=== PATIENT | male | born 1955 | race African-American/Black ===

== ENCOUNTER 2016-03-23 11:47 | Inpatient (IN) | payer OTHER ==
[~2016-03-23] VITALS: Ht 193 cm; Wt 114.0 kg
[~2016-03-23 11:47] MED LIST: A&D OINTMENT60 GM PO; AFRIN,GENASAL D15 ML BOTH NARES; ASPIR 8181 M1 PO; ATIVAN0.5 MG PO; ATIVAN2 MG/1 ML IM; BACLOFEN20 MG PO; BENADRYL25 MG PO; CETIRIZINE HCL10 M2 PO; CHLORPHENIRAMINE4 MG PO; CLONIDINE HCL0.2 MG PO; COLACE100 MG PO; COUMADIN5 MG PO; COUMADIN7.5 MG PO; DETROL2 MG PO; ENULOSE10 GM/15 M PO; FLEXERIL10 MG PO; FLOMAX0.4 MG PO; GLUCOPHAGE500 MG PO; HUMULIN R100 UNITS/ SC; HYDROCHLOROTHIA50 MG PO; HYDROCODON-ACE1 EAC8 PO; LACTULOSE10 GM/151 PO; LISINOPRIL20 MG PO; LISINOPRIL30 MG PO; LOPRESSOR25 MG PO; MAALOX ADVANCE355 ML PO; NASACORT10.8 ML BOTH NARES; NASONEX17 GM BOTH NARES; NEURONTIN300 MG PO; NYSTATIN100000 UN1 PO; OXAYDO5 MG PO; PRILOSEC20 MG PO; PROZAC20 MG PO; TIGER BALM MUSC57 GM TP; TINACTIN15 GM TP; TRIAMCINOLONE A15 GM TP; TUMS500 MG PO; TYLENOL EXTRA500 MG PO; TYLENOL WITH C1 EACH PO; ZANTAC150 MG PO; ZANTAC75 M1 PO; ZYLOPRIM100 MG PO
[2016-03-23 13:22] LABS: HEMATOCRIT 30.5 % (38.0-50.0); MCH 21.7 PG (29.0-34.0); MCHC 32.1 G/DL (30.0-36.0); MCV 67.5 FL (86-99); MEAN PLAT.VOLUME 10.2 uM^3 (9.0-12.4); PLATELET COUNT 270 K/uL (156-360); RBC DIS.WIDTH-CV 18.2 % (11.8-14.6); RED BLOOD COUNT 4.52 M/uL (4.00-5.50); WHITE BLOOD COUNT 14.1 K/uL (4.1-10.2)
[2016-03-23 13:30] LABS: CHLORIDE 105 mEq/L (99-109); POTASSIUM 4.7 mEq/L (3.7-5.4); SODIUM 139 mEq/L (136-147)
[2016-03-23 13:32] LABS: GLUCOSE 128 mg/dL (70-99)
[2016-03-23 13:34] LABS: INTER. NORMALIZED RATIO 1.7; PROTHROMBIN TIME 17.9 (9.2-11.2); PTT 31.5 (25-32)
[2016-03-23 13:34] LABS: ANION GAP 12 MEQ/L (2-14)
[2016-03-23 13:36] LABS: GFR ESTIMATE (CALCULATED) > 59 mL/min/
[2016-03-23 13:37] LABS: UREA NITROGEN (BUN) 26 mg/dL (9-23)
[2016-03-23] MEDS ORDERED: PROZAC20 MG PO (14:12)
[2016-03-23] MEDS ORDERED: GENERLAC10 GM/15 M PO (14:14)
[2016-03-23] MEDS ORDERED: TRIAMCINOLONE A15 G1 TP (14:16)
[2016-03-23] MEDS ORDERED: A&D OINTMENT60 GM PO (14:20)
[2016-03-23] MEDS ORDERED: E-CREAM57 GM TP (14:22)
[2016-03-23] MEDS ORDERED: POTASSIUM GLUCO99 M1 PO (14:26)
[2016-03-23] MEDS ORDERED: COUMADIN4 MG PO (14:29)
[2016-03-23] MEDS ORDERED: PROSCAR5 MG PO (14:29)
[2016-03-23] MEDS ORDERED: TAMSULOSIN HCL0.4 MG PO (14:31)
[2016-03-23] MEDS ORDERED: ZYRTEC10 M2 PO (14:32)
[2016-03-23] MEDS ORDERED: CHLORASEPTIC T1 EACH PO (14:34)
[2016-03-23] MEDS ORDERED: AMITRIPTYLINE H75 MG PO (14:35)
[2016-03-23] MEDS ORDERED: POTASSIUM CHLO10 ME3 PO (14:36)
[2016-03-23] MEDS ORDERED: NORVASC10 MG PO (14:37)
[2016-03-23 18:20] VITALS: BP 160/54
[2016-03-23 18:43] VITALS: BP 160/54
[2016-03-23 22:02] VITALS: BP 156/73
[2016-03-23 22:54] LABS: POINT-OF-CARE METER ID UU14149397
[2016-03-23 23:33] VITALS: BP 179/82
[2016-03-24 04:24] VITALS: BP 166/86
[2016-03-24 07:55] LABS: POINT-OF-CARE METER ID UU13113717
[2016-03-24 08:00] VITALS: BP 159/89
[2016-03-24 08:45] LABS: POINT-OF-CARE METER ID UU13113717
[2016-03-24 08:50] LABS: INTER. NORMALIZED RATIO 1.7; PROTHROMBIN TIME 17.5 (9.2-11.2)
[2016-03-24 11:41] LABS: POINT-OF-CARE METER ID UU13113717
[2016-03-24 12:06] VITALS: BP 168/79
[2016-03-24 16:55] VITALS: BP 143/81
[2016-03-24 19:31] VITALS: BP 167/84
[2016-03-24 21:44] LABS: POINT-OF-CARE METER ID UU14149397
[2016-03-25] VITALS: BP 146/79
[2016-03-25 06:28] LABS: INTER. NORMALIZED RATIO 1.3
[2016-03-25 07:20] LABS: POINT-OF-CARE METER ID UU14149397
[2016-03-25 08:43] VITALS: BP 141/83
[2016-03-25 08:53] VITALS: BP 159/85
[2016-03-25 11:30] VITALS: BP 133/75
[2016-03-25 12:13] LABS: POINT-OF-CARE METER ID UU13113717
[2016-03-25 16:02] LABS: POINT-OF-CARE USER ID 515036437
[2016-03-25 18:42] VITALS: BP 156/79
[2016-03-25 19:19] LABS: INTER. NORMALIZED RATIO 1.2
[2016-03-25 21:37] LABS: POINT-OF-CARE METER ID UU14149397
[2016-03-25 23:38] VITALS: BP 137/64
[2016-03-26 06:28] LABS: HEMATOCRIT 25.5 % (38.0-50.0); MCV 68.2 FL (86-99)
[2016-03-26 06:30] LABS: INTER. NORMALIZED RATIO 1.2; PROTHROMBIN TIME 11.9 (9.2-11.2)
[2016-03-26 06:34] LABS: POINT-OF-CARE METER ID UU13113717
[2016-03-26 06:49] LABS: ANION GAP 8 MEQ/L (2-14); CHLORIDE 104 MEQ/L (99-109); GFR ESTIMATE (CALCULATED) > 59 mL/min/; GLUCOSE 133 mg/dL (70-99); POTASSIUM 3.9 MEQ/L (3.7-5.4); SAMPLE HEMOLYSIS CHECK 0; SAMPLE ICTERIC CHECK 0; SAMPLE LIPEMIA CHECK 0; SODIUM 140 MEQ/L (136-147); UREA NITROGEN (BUN) 17 mg/dL (9-23)
[2016-03-26 08:11] VITALS: BP 138/68
[2016-03-26 16:15] LABS: INTER. NORMALIZED RATIO 1.2; PROTHROMBIN TIME 11.8 (9.2-11.2)
[2016-03-26 17:02] VITALS: BP 132/79
[2016-03-26 17:03] LABS: POINT-OF-CARE METER ID UU13113717
[2016-03-26 21:38] VITALS: BP 169/81
[2016-03-26 22:13] VITALS: BP 174/86
[2016-03-26 22:39] VITALS: BP 168/85
[2016-03-26 23:56] VITALS: BP 165/81
[2016-03-27 02:23] VITALS: BP 157/76
[2016-03-27 03:03] VITALS: BP 135/73
[2016-03-27 05:51] LABS: HEMATOCRIT 27.9 % (38.0-50.0)
[2016-03-27 06:24] LABS: INTER. NORMALIZED RATIO 1.2; PROTHROMBIN TIME 11.9 (9.2-11.2)
[2016-03-27 07:34] VITALS: BP 146/75
[2016-03-27 09:00] LABS: ANION GAP 9 MEQ/L (2-14); CHLORIDE 105 MEQ/L (99-109); SAMPLE HEMOLYSIS CHECK 0; SAMPLE ICTERIC CHECK 0; SAMPLE LIPEMIA CHECK 0; SODIUM 142 MEQ/L (136-147); TOTAL BILIRUBIN 0.6 MG/DL (0.0-1.0)
[2016-03-27 09:06] LABS: ALKALINE PHOSPHATASE 69 IU/L (3-129); GFR ESTIMATE (CALCULATED) > 59 mL/min/; GLUCOSE 120 mg/dL (70-99); HEMATOCRIT 28.9 % (38.0-50.0); MCH 22.3 PG (29.0-34.0); MCHC 31.5 G/DL (30.0-36.0); MCV 70.8 FL (86-99); RBC DIS.WIDTH-CV 19.9 % (11.8-14.6); RBC DIS.WIDTH-SD 50.5 % (39-53); RED BLOOD COUNT 4.08 M/uL (4.00-5.50); UREA NITROGEN (BUN) 19 mg/dL (9-23)
[2016-03-27 09:09] LABS: PLATELET COUNT UNABLE TO REPORT K/uL (156-360)
[2016-03-27 11:55] LABS: POINT-OF-CARE METER ID UU14149397
[2016-03-27 14:25] LABS: ADD MIUA? NO; BILIRUBIN NEGATIVE; BLOOD NEGATIVE; COLOR YELLOW ((YELLOW)); GLUCOSE (STRIP) NEGATIVE; KETONES NEGATIVE; LEUKOCYTES NEGATIVE; NITRITE NEGATIVE; PROTEIN (STRIP) TRACE; SPECIFIC GRAVITY 1.014 (1.000-1.030)
[2016-03-27 14:48] LABS: UCUL ADDED? NO
[2016-03-27 16:17] LABS: INTER. NORMALIZED RATIO 1.2; PROTHROMBIN TIME 11.9 (9.2-11.2)
[2016-03-27 16:51] VITALS: BP 175/84
[2016-03-27 21:57] LABS: POINT-OF-CARE METER ID UU14149397
[2016-03-27 23:58] VITALS: BP 134/67
[2016-03-28 05:32] LABS: ANION GAP 9 MEQ/L (2-14); CHLORIDE 104 MEQ/L (99-109); GFR ESTIMATE (CALCULATED) > 59 mL/min/; GLUCOSE 123 mg/dL (70-99); POTASSIUM 4.1 MEQ/L (3.7-5.4); SAMPLE HEMOLYSIS CHECK 0; SAMPLE ICTERIC CHECK 0; SAMPLE LIPEMIA CHECK 0; SODIUM 139 MEQ/L (136-147); UREA NITROGEN (BUN) 22 mg/dL (9-23)
[2016-03-28 06:25] LABS: INTER. NORMALIZED RATIO 1.2
[2016-03-28 07:52] VITALS: BP 159/85
[2016-03-28 12:00] LABS: NRBC (%) 0.2 /100 WBC (0-0)
[2016-03-28 12:02] LABS: EOSINOPHIL (%) 1.5 % (0-5); EOSINOPHIL COUNT 0.2 K/uL (0-0.3); IMMATURE GRANULOCYTE (%) 0.5 % (0.0-0.7); IMMATURE GRANULOCYTE COUNT 0.1 K/uL; LYMPHOCYTE COUNT 1.1 K/uL (1.0-2.8); MONOCYTE (%) 10.7 % (3-12); MONOCYTE COUNT 1.5 K/uL (0-0.8); NEUTROPHIL (%) 79.4 % (45-76); NEUTROPHIL COUNT 11.5 K/uL (1.8-6.4)
[2016-03-28 12:58] LABS: HEMATOCRIT 27.3 % (38.0-50.0); MCH 23.2 PG (29.0-34.0); MCHC 32.2 G/DL (30.0-36.0); MEAN PLAT.VOLUME 11.4 uM^3 (9.0-12.4); PLATELET COUNT 255 K/uL (156-360); RBC DIS.WIDTH-CV 20.8 % (11.8-14.6); RED BLOOD COUNT 3.79 M/uL (4.00-5.50); WHITE BLOOD COUNT 14.5 K/uL (4.1-10.2)
[2016-03-28 12:59] LABS: PLAT.SUFFICIENCY ADEQUATE; USER ID STC
[2016-03-28 16:00] VITALS: BP 147/86
[2016-03-28 16:05] LABS: INTER. NORMALIZED RATIO 1.2; PROTHROMBIN TIME 12.5 (9.2-11.2)
[2016-03-28 22:22] LABS: POINT-OF-CARE METER ID UU14149397
[2016-03-28 23:02] VITALS: BP 139/75
[2016-03-29 06:02] LABS: MCH 22.6 PG (29.0-34.0); MCHC 31.4 G/DL (30.0-36.0); MCV 71.8 FL (86-99); MEAN PLAT.VOLUME 10.2 uM^3 (9.0-12.4); PLATELET COUNT 284 K/uL (156-360); RBC DIS.WIDTH-CV 21.2 % (11.8-14.6); RBC DIS.WIDTH-SD 54.4 % (39-53); WHITE BLOOD COUNT 11.2 K/uL (4.1-10.2)
[2016-03-29 06:15] LABS: INTER. NORMALIZED RATIO 1.3; PROTHROMBIN TIME 13.3 (9.2-11.2)
[2016-03-29 06:20] LABS: ANION GAP 8 MEQ/L (2-14); CHLORIDE 104 MEQ/L (99-109); GFR ESTIMATE (CALCULATED) > 59 mL/min/; GLUCOSE 112 mg/dL (70-99); POTASSIUM 4.7 MEQ/L (3.7-5.4); SAMPLE HEMOLYSIS CHECK 0; SAMPLE ICTERIC CHECK 0; SAMPLE LIPEMIA CHECK 0; SODIUM 141 MEQ/L (136-147); UREA NITROGEN (BUN) 20 mg/dL (9-23)
[2016-03-29 07:02] LABS: POINT-OF-CARE METER ID UU14149397
[2016-03-29 08:11] VITALS: BP 136/73
[2016-03-29] MEDS ORDERED: TYLENOL REGULA325 MG PO (09:18)
[2016-03-29] MEDS ORDERED: OXYCODONE HCL5 MG PO (09:19)
[2016-03-29] MEDS ORDERED: SENNA PLUS TAB1 EACH PO (09:19)
[2016-03-29 12:23] LABS: POINT-OF-CARE METER ID UU14149397
[2016-03-29 12:33] VITALS: BP 144/81
== END 2016-03-29 13:20 | DRG 469 ==
LOC: EME → EDBD 11:47 → EME 11:47 → EDOF 14:30 → 3EAST 14:30
PROVIDERS: Emergency Medicine; Internal Medicine; Orthopaedic Surgery; Orthopaedic Surgery Sports Medicine; Physician Assistant
PROC: 0SRS01A Replacement of Left Hip Joint, Femoral Surface with Metal Synthetic Substitute, Uncemented, Open Approach (ICD-10-PCS; principal; 2016-03-25)
PROC: 30233N1 Transfusion of Nonautologous Red Blood Cells into Peripheral Vein, Percutaneous Approach (ICD-10-PCS; 2016-03-26)
DX: S72.002A Fracture of unspecified part of neck of left femur, initial encounter for closed fracture (principal); G93.40 Encephalopathy, unspecified; L89.152 Pressure ulcer of sacral region, stage 2; W05.0XXA Fall from non-moving wheelchair, initial encounter; Y92.142 Bathroom in prison as the place of occurrence of the external cause; Y99.8 Other external cause status; R65.10 Systemic inflammatory response syndrome (SIRS) of non-infectious origin without acute organ dysfunction; D62 Acute posthemorrhagic anemia; J90 Pleural effusion, not elsewhere classified; R50.84 Febrile nonhemolytic transfusion reaction; M79.2 Neuralgia and neuritis, unspecified; I10 Essential (primary) hypertension; E11.9 Type 2 diabetes mellitus without complications; K59.00 Constipation, unspecified; M19.90 Unspecified osteoarthritis, unspecified site; K21.9 Gastro-esophageal reflux disease without esophagitis; F32.9 Major depressive disorder, single episode, unspecified; N40.0 Benign prostatic hyperplasia without lower urinary tract symptoms; Z98.1 Arthrodesis status; Z79.01 Long term (current) use of anticoagulants; R26.2 Difficulty in walking, not elsewhere classified; Z87.891 Personal history of nicotine dependence
CPT/HCPCS: 70450; 71010; 72170; 73502; 80048; 80053; 81003; 82140; 82948; 83605; 85014; 85018; 85025; 85027; 85610; 85651; 85730; 86140; 86850; 86900; 86901; 86920; 87040; 93005; 93306; 94799; 99281; 99285; J0330; J0690; J1170; J1815; J2270; J2405; J3010; J7120; P9016